=== PATIENT | female | born 1945 | race Caucasian/White ===

== ENCOUNTER 2019-07-14 22:38 | Observation (INO) ==
[2019-07-14] MEDS ORDERED: Azithromycin 500 MG in 0.9 % Sodium Chloride 250 ML IVPB ONE (22:47)
[2019-07-14] MEDS ORDERED: Albuterol 2.5 MG/3 ML NEBULIZER IH ONE (22:47)
[2019-07-14] MEDS ORDERED: Piperacillin/Tazobactam 3.375 GM in Water for inj. (sterile) 20 ML IVP ONE (22:47)
--- NOTE | 2019-07-14 22:52 | Emergency Department Note ---
Disposition Clinical Impression: Aspiration into airway Qualifiers: Encounter type: initial encounter Qualified Code(s): T17.908A - Unspecified foreign body in respiratory tract, part unspecified causing other injury, initial encounter Disposition: Admitted As Inpatient Condition: Good Referrals: Jai Marie MD [Primary Care Provider] - Forms: ED Satisfaction Letter Time of Disposition: 00:27 SOB HPI - General Chief Complaint: ED Shortness of Breath/Dyspnea Stated Complaint: possible asspiration Time Seen by Provider: 07/14/19 22:45 Source: EMS Mode of arrival: EMS Limitations: altered mental status (Chronic), physical limitation Nursing Notes Reviewed: Yes Vital Signs Reviewed: Yes - History of Present Illness Patient has Down syndrome and severe MRDD. The patient is noncommunicative. She is been brought from her [facility] for increased respiratory distress with gurgling respiration. There is concern for possible aspiration. Her vital signs report be relatively stable and she has been saturating in the high 80s. Supplemental oxygen was applied. He has not had reported fevers, vomiting or diarrhea. Is unknown for ill exposures. She reportedly has been receiving all of her routine medicines and treatments. - Related Data Home Medications Medication Instructions Recorded Confirmed Acetaminophen [Tylenol 650mg SUPP] 650 mg GTUBE Q4HR PRN 03/14/17 08/07/18 Artificial Tears SOLN [Akwa Tears] 1 drop BOTH EYES QID 03/14/17 08/07/18 Bisacodyl [Dulcolax] 10 mg RC DAILY PRN 03/14/17 08/07/18 Levothyroxine [Synthroid] 175 mcg GTUBE 0630 03/14/17 08/07/18 Multivit-Min/FA/Lycopen/Lutein 1 each GTUBE QAM 03/14/17 08/07/18 [Adults 50+ Multivitamin Tablet] Soy Protein [Ultramino] 480 gm GTUBE QAM 03/14/17 08/07/18 Allergies Allergy/AdvReac Type Severity Reaction Status Date / Time No Known Allergies Allergy Verified 07/14/19 22:58 Limitations: ROS unobtainable due to patients medical condition Past Medical History - Past Medical History Source: old records reviewed, nursing notes reviewed Medical history: Reports: asthma, CHF, pulmonary embolus, thyroid disease, other (obesity, chronic tremors and twitching, Down's, profound MRDD) Surgical history: Reports: other (g tube) Psychiatric history: Reports: no psych history SENIOR MAINFRAME PROGRAMMER ANALYST history: Reports: no SENIOR MAINFRAME PROGRAMMER ANALYST history - Social History Smoking Status: Never smoker Smokeless Tobacco Status: No Alcohol use: Reports: none Drug use: Reports: none Physical Exam - General Limitations: altered mental status, physical limitation, other (Down syndrome with severe MRDD) General appearance: other (Gurgly respirations but no apparent distress.) - Head Head exam: atraumatic, normocephalic, normal inspection - Eye Eye exam: Present: normal appearance. Absent: scleral icterus, conjunctival injection - ENT ENT exam: normal exam, mucous membranes moist, mucous membranes dry - Neck Neck exam: Present: normal inspection, full ROM, trachea midline - Chest Chest inspection: Present: normal inspection, symmetric chest wall rise. Absent: tenderness - Respiratory Respiratory exam: Present: other (Relatively loud gurgling respirations but has saturating well on supplemental oxygen without tachycardia.). Absent: respiratory distress, wheezes, stridor, accessory muscle use, prolonged expiratory phase - Cardiovascular Cardiovascular exam: Present: regular rate, normal rhythm, normal heart sounds. Absent: tachycardia - Abdominal Exam Abdominal exam: Present: soft, Non-Tender, normal bowel sounds. Absent: tenderness, distention, guarding, rebound, rigidity - Extremities Exam Extremities exam: Present: normal inspection, full ROM, normal capillary refill. Absent: tenderness, pedal edema, calf tenderness - Expanded Lower Extremity Exam Neurovascular/Tendon exam: Present: normal capillary refill Gait: not tested/not observed - Neurological Exam Neurological exam: Absent: oriented X3 - Psychiatric Psychiatric exam: Present: flat affect. Absent: agitated, anxious - Skin Skin exam: Present: warm, dry, intact, normal color. Absent: cyanosis, diaphoresis, pallor Course Course Narrative: Testing has been discussed with the patient presents family at bedside. I recommended continued IV fluids, respiratory suction and IV antibiotics. I discuss with their expectations should symptoms worsen. Percent bedside say that she patient's sister in [place] make the healthcare decisions. She knows that they would not want her on a ventilator and states that she is 73, has Down syndrome and "if she goes she goes". The patient is full code at this time. Individual bedside would like to talk to the patient's sister in [place] tomorrow to discuss CODE STATUS. I recommended DNR comfort care arrest status and they are agreeable to discussing that while inpatient. She remains full code at this time. They understand that she would be intubated, get chest compressions and ACLS medication with her current CODE STATUS. 0015: The patient's guardian at bedside is assigned she does wish to sign DNR comfort care paperwork. In discussion she does not believe she did wish her intubated under any circumstances and has elected to DNR CCarrest DNI status. This has been signed and a page has been placed to Dr. Bailey for her admission. 0020: Care has been discussed with Dr. Bailey. Verbal orders have been obtained for the patient's observation. Vital Signs Temperature 97.4 F L 07/14/19 22:39 Pulse Rate 67 07/14/19 22:39 Respiratory Rate 21 07/14/19 22:39 Blood Pressure 152/126 07/14/19 22:39 O2 Sat by Pulse Oximetry 100 07/14/19 22:39 Temperature 97.1 F L 07/14/19 22:51 Pulse Rate 73 07/15/19 00:03 Respiratory Rate 20 07/15/19 00:03 Blood Pressure 105/90 07/15/19 00:03 O2 Sat by Pulse Oximetry 99 07/15/19 00:03 Oxygen Delivery Oxygen Delivery Simple Mask Shortness of Breath/Dyspnea - Differential Diagnosis Likely: acute exacerbation of chronic obstructive airways disease, pneumonia (Aspiration) - Medical Records Medical records reviewed: Yes I reviewed the patient's medical records. - Lab Data Lab results reviewed: Yes I reviewed the patient's lab results. Result diagrams: 07/14/19 23:07 07/14/19 23:07 Lab Results 07/14/19 07/14/19 07/14/19 Range/Units 23:07 23:07 23:07 WBC 5.3 (4.3-11.1) K/mcL RBC 4.04 (3.82-4.97) M/mcL Hgb 15.4 (11.5-15.4) g/dL Hct 45.3 H (35.3-44.9) % MCV 112.1 H (83.0-100.0) fL MCH 38.1 H (28.0-33.3) pg MCHC 34.0 (31.6-35.5) g/dL RDW 15.3 H (11.5-14.5) % Plt Count 98 L (140-400) K/mcL MPV 12.4 (9.4-12.4) fL Immature Gran % 0.4 (0-4) % Seg Neutrophils % 72.1 % Lymphocytes % 15.6 % Monocytes % 10.7 % Eosinophils % 0.6 % Basophils % 0.6 % Neutrophils # 3.8 (1.6-8.9) K/mcL Lymphocytes # 0.8 (0.6-4.6) K/mcL Monocytes # 0.6 (0.0-1.3) K/mcL Eosinophils # 0.0 (0.0-0.6) K/mcL Basophils # 0.0 (0.0-0.2) K/mcL PT 12.4 H (9.4-12.1) Seconds INR 1.1 Sodium 134 L (136-145) mEq/L Potassium 4.3 (3.5-5.1) mEq/L Chloride 100 (98-107) mEq/L Carbon Dioxide 32 H (23-29) mEq/L BUN 16 (8-23) mg/dL Creatinine 0.76 (0.60-1.20) mg/dL Est GFR ( Amer) > 60 (> 60) Est GFR (Non-Af Amer) > 60 (> 60) BUN/Creatinine Ratio 21 (6-26) Glucose 100 (70-105) mg/dL Calculated Osmolality 279 L (280-300) Lactic Acid (0.5-2.2) mmol/L Calcium 7.9 L (8.6-10.3) mg/dL Total Bilirubin 0.3 (0.3-1.0) mg/dL Direct Bilirubin 0.0 (0.0-0.2) mg/dL Indirect Bilirubin 0.3 (0.0-1.2) mg/dL AST 26 (13-39) Units/L ALT 34 (7-52) Units/L Alkaline Phosphatase 129 H (34-104) Units/L Troponin I < 0.03 (< 0.04) ng/mL B-Natriuretic Peptide (Less than 100) pg/mL Serum Total Protein 6.6 (6.4-8.9) g/dL Albumin 2.6 L (3.5-5.7) g/dL Globulin 4.0 H (2.4-3.5) g/dL Albumin/Globulin Ratio 0.7 L (1.1-2.2) Urine Color (Yellow) Urine Clarity (Clear) Urine pH (5.0-8.0) pH Units Ur Specific Ney (1.010-1.025) Urine Protein (Neg-Trace) mg/dL Urine Glucose (UA) (Normal) mg/dL Urine Ketones (Negative) mg/dL Urine Blood (Negative) Urine Nitrite (Negative) Urine Bilirubin (Negative) Urine Urobilinogen (Normal) mg/dL Ur Leukocyte Esterase (Negative) Urine Microscopic RBC (0-3) per hpf Urine Microscopic WBC (0-3) per hpf Ur Squamous Epith Cells (None-Few) per lpf Ur Transition Epith Cell (None-Few) per hpf Urine Bacteria (None-Few) per hpf Ur Culture Indicated? (NO) 07/14/19 07/14/19 07/14/19 Range/Units 23:07 23:07 23:31 WBC (4.3-11.1) K/mcL RBC (3.82-4.97) M/mcL Hgb (11.5-15.4) g/dL Hct (35.3-44.9) % MCV (83.0-100.0) fL MCH (28.0-33.3) pg MCHC (31.6-35.5) g/dL RDW (11.5-14.5) % Plt Count (140-400) K/mcL MPV (9.4-12.4) fL Immature Gran % (0-4) % Seg Neutrophils % % Lymphocytes % % Monocytes % % Eosinophils % % Basophils % % Neutrophils # (1.6-8.9) K/mcL Lymphocytes # (0.6-4.6) K/mcL Monocytes # (0.0-1.3) K/mcL Eosinophils # (0.0-0.6) K/mcL Basophils # (0.0-0.2) K/mcL PT (9.4-12.1) Seconds INR Sodium (136-145) mEq/L Potassium (3.5-5.1) mEq/L Chloride (98-107) mEq/L Carbon Dioxide (23-29) mEq/L BUN (8-23) mg/dL Creatinine (0.60-1.20) mg/dL Est GFR ( Amer) (> 60) Est GFR (Non-Af Amer) (> 60) BUN/Creatinine Ratio (6-26) Glucose (70-105) mg/dL Calculated Osmolality (280-300) Lactic Acid 0.8 (0.5-2.2) mmol/L Calcium (8.6-10.3) mg/dL Total Bilirubin (0.3-1.0) mg/dL Direct Bilirubin (0.0-0.2) mg/dL Indirect Bilirubin (0.0-1.2) mg/dL AST (13-39) Units/L ALT (7-52) Units/L Alkaline Phosphatase (34-104) Units/L Troponin I (< 0.04) ng/mL B-Natriuretic Peptide 65 (Less than 100) pg/mL Serum Total Protein (6.4-8.9) g/dL Albumin (3.5-5.7) g/dL Globulin (2.4-3.5) g/dL Albumin/Globulin Ratio (1.1-2.2) Urine Color Yellow (Yellow) Urine Clarity Clear (Clear) Urine pH 7.0 (5.0-8.0) pH Units Ur Specific Ney 1.015 (1.010-1.025) Urine Protein Negative (Neg-Trace) mg/dL Urine Glucose (UA) Normal (Normal) mg/dL Urine Ketones Negative (Negative) mg/dL Urine Blood Small H (Negative) Urine Nitrite Negative (Negative) Urine Bilirubin Negative (Negative) Urine Urobilinogen Normal (Normal) mg/dL Ur Leukocyte Esterase Trace H (Negative) Urine Microscopic RBC 5-15 H (0-3) per hpf Urine Microscopic WBC 5-15 H (0-3) per hpf Ur Squamous Epith Cells Many H (None-Few) per lpf Ur Transition Epith Cell Many H (None-Few) per hpf Urine Bacteria Few (None-Few) per hpf Ur Culture Indicated? YES A (NO) - Radiology Data Radiology results reviewed: Yes I reviewed the patient's radiology results. Single view chest x-ray is performed. This does not demonstrate evidence for dominant infiltrate, effusion, pneumothorax, foreign body or heart failure. Patient has a little fullness in the right hilar region with some basilar atelectasis. The cardiac silhouette is normal. I do not see abnormality to the osseous structures of the chest. This is on my interpretation. Impressions Chest X-Ray 07/14/19 23:08 IMPRESSION: Peribronchial cuffing could reflect mild edema versus airway inflammation. No consolidative airspace disease. D/ / Marcelino Escalante / Marcelino Escalante Interpreting Provider: Marcelino Escalante - EKG Data EKG attestation: Yes I reviewed and interpreted this EKG. EKG shows normal: Reports: sinus rhythm, axis, intervals, QRS complexes, ST-T waves Rate: Reports: bradycardia (57) Interpretation: Reports: no acute changes, other (Patient has baseline artifact without other acute abnormalities.) Critical Care Time Critical Care Time: Yes Total Critical Care Time: 45 Attestation: As this patient did present with signs and symptoms of potential life- threatening illness requiring my urgent intervention, total critical care time in this patient's care has been 45 minutes, not withstanding separately reportable procedures.
[2019-07-14 23:21] LABS: Basophils % 0.6 %; Eosinophils % 0.6 %; Hematocrit 45.3 % (35.3-44.9); Hemoglobin 15.4 g/dL (11.5-15.4); Immature Granulocytes % 0.4 % (0-4); Lymphocytes # 0.8 K/mcL (0.6-4.6); Lymphocytes % 15.6 %; Mean Corpuscular Hemoglobin 38.1 pg (28.0-33.3); Mean Corpuscular Volume 112.1 fL (83.0-100.0); Mean Platelet Volume 12.4 fL (9.4-12.4); Monocytes # 0.6 K/mcL (0.0-1.3); Monocytes % 10.7 %; Neutrophils # 3.8 K/mcL (1.6-8.9); Red Blood Count 4.04 M/mcL (3.82-4.97); Red Cell Distribution Width 15.3 % (11.5-14.5); Segmented Neutrophils % 72.1 %; White Blood Count 5.3 K/mcL (4.3-11.1)
[2019-07-14 23:23] LABS: Platelet Count 98 K/mcL (140-400)
[2019-07-14 23:29] LABS: INR 1.1; Prothrombin Time 12.4 Seconds (9.4-12.1)
[2019-07-14 23:41] LABS: Alanine Aminotransferase 34 Units/L (7-52); Albumin 2.6 g/dL (3.5-5.7); Albumin/Globulin Ratio 0.7 (1.1-2.2); Alkaline Phosphatase 129 Units/L (34-104); Aspartate Amino Transferase 26 Units/L (13-39); BUN/Creatinine Ratio 21 (6-26); Bilirubin,Indirect 0.3 mg/dL (0.0-1.2); Bilirubin,Total 0.3 mg/dL (0.3-1.0); Blood Urea Nitrogen 16 mg/dL (8-23); Calcium 7.9 mg/dL (8.6-10.3); Carbon Dioxide 32 mEq/L (23-29); Chloride 100 mEq/L (98-107); Glucose 100 mg/dL (70-105); Osmolality,Calculated 279 (280-300); Potassium 4.3 mEq/L (3.5-5.1); Sodium 134 mEq/L (136-145); Total Protein 6.6 g/dL (6.4-8.9); eGFR For African Americans > 60 (> 60); eGFR For Non-African Americans > 60 (> 60)
[2019-07-14 23:43] LABS: Troponin I < 0.03 ng/mL (< 0.04)
[2019-07-14 23:48] LABS: Bilirubin,Urine Negative (Negative); Blood,Urine Small (Negative); Clarity,Urine Clear (Clear); Color,Urine Yellow (Yellow); Glucose,Urine (UA) Normal (Normal); Ketones,Urine Negative (Negative); Leukocyte Esterase,Urine Trace (Negative); Nitrite,Urine Negative (Negative); Protein,Urine Negative (Neg-Trace); Specific Gravity,Urine 1.015 (1.010-1.025); Urobilinogen,Urine Normal (Normal)
[2019-07-14 23:51] LABS: Bacteria,Urine Few per hpf (None-Few); Squamous Epithelial Cell,Urine Many per lpf (None-Few); Transitional Epi Cells,Urine Many per hpf (None-Few)
[2019-07-15] MEDS ORDERED: Scopolamine Patch 1.5 MG PATCH.TD72 TD SCH ×2 (01:00→02:10)
[2019-07-15] MEDS ORDERED: Naloxone 0.4 MG/ML INJ IVP PRN (01:04)
[2019-07-15] MEDS ORDERED: Ondansetron 4 MG/2 ML VIAL IVP PRN (01:04)
[2019-07-15] MEDS: 0.9 % Sodium Chloride 1,000 ML IVC SCH ×2 (01:38→12:28)
[2019-07-15] MEDS: Ipratropium/Albuterol Neb 3 ML IH SCH ×4 (04:00→21:20)
[2019-07-15] MEDS: Primidone 50 MG TABLET PO SCH ×3 (07:34→17:36)
[2019-07-15] MEDS: Piperacillin/Tazobactam 3.375 GM in 0.9 % Sodium Chloride Mini Bag 100 ML IVPB SCH ×2 (08:46→17:43)
[2019-07-15] MEDS: Artificial Tears SOLN 15 ML BOTTLE BOTH EYES SCH ×4 (08:47→22:30)
--- NOTE | 2019-07-15 11:23 | Internal Med History&Physical ---
Date of Encounter: 07/15/19 Time of Encounter: 11:05 Assessment and Plan (1) Aspiration into airway Current visit: Yes Status: Acute Presumed but unwitnessed. She has been started empirically on antibiotics. Probiotics will be given. Follow-up labs will be ordered. Qualifiers: Encounter type: initial encounter Qualified Code(s): T17.908A - Unspecified foreign body in respiratory tract, part unspecified causing other injury, initial encounter (2) Macrocytosis without anemia Current visit: Yes Status: Acute TSH was normal at 0.648 on 06/22/2019. B12 and folate levels will be checked. LFTs unremarkable. Internal Medicine - H&P: HPI Chief complaint: Dyspnea Admitted From: Emergency Dept Plans for Post Hospital Care: Transfer Correction Care History of present illness: Ms. Briggs is a 73 year old female who was sent from a local SNF to ER after there was concern for possible aspiration. The ER report states oxygen saturations were in the high 80s. She was evaluated in the ER and found to have labored respirations. Her POA changed her advance directive status to DNR CCA/DNI. [facility]. She is nonverbal and cannot give any history. Available records showed diagnosis of asthma. Past Med Surg Social Fam HX - Past Medical History Medical history: asthma, CHF, pulmonary embolus, thyroid disease, other Additional medical history: aphasia,contracted Psychiatric history: no psych history - Past Surgical History Surgical History: other - Social History Smoking Status: Never smoker Smokeless Tobacco Status: No Alcohol use: none Drug use: none - Family History Mother History Unknown: Yes Internal Medicine - H&P: Meds Acetaminophen [Tylenol 650mg SUPP] 650 mg GTUBE Q4HR PRN 03/14/17 [History] Artificial Tears SOLN [Akwa Tears] 1 drop BOTH EYES QID 03/14/17 [History] Bisacodyl [Dulcolax] 10 mg RC DAILY PRN 03/14/17 [History] Levothyroxine [Synthroid] 175 mcg GTUBE 0630 03/14/17 [History] Multivit-Min/FA/Lycopen/Lutein [Adults 50+ Multivitamin Tablet] 1 each GTUBE QAM 03/14/17 [History] Soy Protein [Ultramino] 480 gm GTUBE QAM 03/14/17 [History] Magnesium Hydroxide [Milk of Magnesia] 400 mg PO 07/15/19 [History] Primidone 07/15/19 [History] Scopolamine Patch [Transderm-Scop] 1.5 mg TD Q72H 07/15/19 [History] Allergy/AdvReac Type Severity Reaction Status Date / Time No Known Allergies Allergy Verified 07/14/19 22:58 All Systems PM: A 10-system review of systems was performed and is negative for pertinent findings except as documented above in the HPI. Review of systems: Unobtainable from the patient. Available records show asthma, CHF, pulmonary embolus NOS, thyroid disease NOS, Down syndrome, and "chronic tremors and twitching". Review of available labs show chronic macrocytosis and thrombocytopenia. - Constitutional Vitals: Temp Pulse Resp BP Pulse Ox 99.4 F 65 20 102/63 95 07/15/19 10:45 07/15/19 10:45 07/15/19 10:45 07/15/19 10:45 07/15/19 10:45 Exam: Gen.: She is a well-developed obese female with Down syndrome lying in bed wearing oxygen by mask HEENT: Head is atraumatic and normocephalic. She has significant scaliness on her scalp. Eyes: She has a disconjugate gaze. There is mild conjunctival erythema bilaterally. Mouth: Mucosa is dry. She is mouth breathing. Neck: She has a large neck. No masses are palpated. Heart: Regular with tones difficult to hear due to respiratory sounds. Lungs: She has diffuse gurgling secretions in her airways. No wheezing is heard. Abdomen: G-tube is in place in the epigastric area. The abdomen is nontender to palpation. No masses or guarding are noted. Extremities: There is no cyanosis edema or clubbing noted. Dorsalis pedis and posterior tibial pulses are trace palpable. Neurologic: Mental status: She is nonverbal and does not follow commands or respond to voice. Cranial nerves: She does not make spontaneous facial movements or follow commands. She has a disconjugate gaze. Motor: She does not move her arms spontaneously. There is equal tone on passive range of motion. She withdraws her feet to touch. She has occasional jerking motion of her arms. No further neurologic testing is attempted. Skin: Warm and dry. Internal Med - H&P Results - Labs CBC & Chem 7: 07/14/19 23:07 07/14/19 23:07 Labs: Short CBC 07/14/19 Range/Units 23:07 WBC 5.3 (4.3-11.1) K/mcL Hgb 15.4 (11.5-15.4) g/dL Hct 45.3 H (35.3-44.9) % Plt Count 98 L (140-400) K/mcL Neutrophils # 3.8 (1.6-8.9) K/mcL BMP 07/14/19 23:07 Sodium 134 L Potassium 4.3 Chloride 100 Carbon Dioxide 32 H BUN 16 Creatinine 0.76 Glucose 100 Calcium 7.9 L Cardiac Enzymes 07/14/19 Range/Units 23:07 Troponin I < 0.03 (< 0.04) ng/mL Liver Function 07/14/19 Range/Units 23:07 Total Bilirubin 0.3 (0.3-1.0) mg/dL Direct Bilirubin 0.0 (0.0-0.2) mg/dL AST 26 (13-39) Units/L ALT 34 (7-52) Units/L Alkaline Phosphatase 129 H (34-104) Units/L Albumin 2.6 L (3.5-5.7) g/dL Urine 07/14/19 Range/Units 23:31 Urine Color Yellow (Yellow) Urine Clarity Clear (Clear) Urine pH 7.0 (5.0-8.0) pH Units Ur Specific Wendel 1.015 (1.010-1.025) Urine Protein Negative (Neg-Trace) mg/dL Urine Glucose (UA) Normal (Normal) mg/dL - Impressions ITS Impressions Chest X-Ray 07/14/19 23:08 IMPRESSION: Peribronchial cuffing could reflect mild edema versus airway inflammation. No consolidative airspace disease. D/ / Marcelino Escalante / Marcelino Escalante Interpreting Provider: Marcelino Escalante
[2019-07-15 11:34] LABS: Basophils % 0.4 %; Eosinophils % 0.1 %; Hematocrit 43.6 % (35.3-44.9); Hemoglobin 14.5 g/dL (11.5-15.4); Immature Granulocytes % 0.5 % (0-4); Lymphocytes # 0.5 K/mcL (0.6-4.6); Lymphocytes % 6.4 %; Mean Corpuscular HGB Conc 33.3 g/dL (31.6-35.5); Mean Corpuscular Hemoglobin 38.3 pg (28.0-33.3); Mean Platelet Volume 11.6 fL (9.4-12.4); Monocytes # 0.5 K/mcL (0.0-1.3); Monocytes % 6.2 %; Neutrophils # 7.3 K/mcL (1.6-8.9); Red Blood Count 3.79 M/mcL (3.82-4.97); Red Cell Distribution Width 15.5 % (11.5-14.5); Segmented Neutrophils % 86.4 %; White Blood Count 8.4 K/mcL (4.3-11.1)
[2019-07-15 11:43] LABS: Platelet Count 95 K/mcL (140-400)
[2019-07-15 11:45] LABS: Macrocytosis Present (Not Present); Platelet Estimate Decreased (Normal); Polychromasia 1+ (Not Present)
[2019-07-15 16:30] LABS: Folate 22.3 ng/mL (3.0-16.0)
[2019-07-15] MEDS ORDERED: Azithromycin 500 MG in 0.9 % Sodium Chloride 250 ML IVPB SCH (17:00)
[2019-07-15] MEDS: Azithromycin 500 MG in 0.9 % Sodium Chloride 250 ML IVPB SCH (22:31)
[2019-07-16] MEDS: Piperacillin/Tazobactam 3.375 GM in 0.9 % Sodium Chloride Mini Bag 100 ML IVPB SCH ×3 (00:28→17:10)
[2019-07-16] MEDS: Primidone 50 MG TABLET PO SCH ×4 (00:29→17:11)
[2019-07-16] MEDS: Ipratropium/Albuterol Neb 3 ML IH SCH ×2 (03:26→08:55)
[2019-07-16] MEDS: Artificial Tears SOLN 15 ML BOTTLE BOTH EYES SCH ×4 (08:05→21:23)
--- NOTE | 2019-07-16 11:39 | Electrocardiograph Report ---
[place] [id number] Test Date: 2019-07-14 Pat Name: Cliff Briggs Department: EDP-16 Room: [facility] Gender: F Photographer Assistant: : 1945 Requested By: Pramod Short Order Number: [id number] Reading MD: Gil Davila Measurements Intervals [place] Rate: 57 P: MN: QRS: -9 QRSD: 114 T: 73 QT: 504 QTc: 487 Interpretive Statements Sinus bradycardia Borderline intraventricular conduction delay Low voltage, precordial leads Nonspecific T abnrm, anterolateral leads Borderline prolonged QT interval Electronically Signed On 07-16-2019 11:37:20 EDT by Gil Davila
--- NOTE | 2019-07-16 13:42 | Internal Med Progress Note ---
Date of Encounter: 07/16/19 Time of Encounter: 13:35 - Assessment and plan (1) Aspiration into airway Current Visit: Yes Status: Acute Assessment and plan: July 16. Presumed but unwitnessed. WBC has risen to 8.4 with increased left shift on differential. Pro-calcitonin level 0.07 yesterday. Continue empiric antibiotics and probiotics. Recheck labs and chest x-ray in a.m. Qualifiers: Encounter type: initial encounter Qualified Code(s): T17.908A - Unspecified foreign body in respiratory tract, part unspecified causing other injury, initial encounter (2) Macrocytosis without anemia Current Visit: Yes Status: Acute Assessment and plan: July 16. LFTs, B12, and folate WNL. TSH WNL at 0.648 on 06/22/2019. - Subjective Interval history: July 16. No new problems have arisen. - Constitutional Vitals: Temp Pulse Resp BP Pulse Ox 99.3 F 56 16 80/56 95 07/16/19 06:23 07/16/19 06:23 07/16/19 08:56 07/16/19 06:23 07/16/19 08:56 Exam: She is lying in bed and appears in no significant distress. She has upper airway secretions but does not appear significantly tachypneic. No wheezing is heard. Heart tones are inaudible due to secretions. I reviewed her medications and lab results. Internal Medicine: Result - Labs CBC & Chem 7: 07/15/19 11:26 07/14/19 23:07 - ABG Interpretation ABG results: PT/INR, D-dimer PT 12.4 Seconds (9.4-12.1) H 07/14/19 23:07 Consult Discharge Plan - Plan Referrals: Jai Marie MD [Primary Care Provider] - 1 week
[2019-07-16] MEDS: Lactobacillus 1 EACH CAP.SPRINK PO SCH (21:17)
[2019-07-16] MEDS: Albuterol 2.5 MG/3 ML NEBULIZER IH PRN (21:52)
[2019-07-16] MEDS: Azithromycin 500 MG in 0.9 % Sodium Chloride 250 ML IVPB SCH (23:09)
[2019-07-17] MEDS: Piperacillin/Tazobactam 3.375 GM in 0.9 % Sodium Chloride Mini Bag 100 ML IVPB SCH ×2 (00:26→08:28)
[2019-07-17] MEDS: Primidone 50 MG TABLET PO SCH ×2 (00:26→06:07)
[2019-07-17] MEDS: Albuterol 2.5 MG/3 ML NEBULIZER IH PRN (01:34)
[2019-07-17 06:32] VITALS: BP 109/55
[2019-07-17 07:54] LABS: Basophils % 0.9 %; Eosinophils # 0.1 K/mcL (0.0-0.6); Eosinophils % 1.4 %; Hematocrit 42.5 % (35.3-44.9); Hemoglobin 14.3 g/dL (11.5-15.4); Immature Granulocytes % 0.7 % (0-4); Lymphocytes # 0.9 K/mcL (0.6-4.6); Lymphocytes % 19.8 %; Mean Corpuscular HGB Conc 33.6 g/dL (31.6-35.5); Mean Corpuscular Hemoglobin 38.6 pg (28.0-33.3); Mean Corpuscular Volume 114.9 fL (83.0-100.0); Mean Platelet Volume 11.9 fL (9.4-12.4); Monocytes # 0.4 K/mcL (0.0-1.3); Monocytes % 9.8 %; Neutrophils # 2.9 K/mcL (1.6-8.9); Platelet Count 103 K/mcL (140-400); Red Cell Distribution Width 14.6 % (11.5-14.5); Segmented Neutrophils % 67.4 %; White Blood Count 4.3 K/mcL (4.3-11.1)
[2019-07-17 08:18] LABS: BUN/Creatinine Ratio 17 (6-26); Blood Urea Nitrogen 13 mg/dL (8-23); Carbon Dioxide 32 mEq/L (23-29); Chloride 102 mEq/L (98-107); Glucose 97 mg/dL (70-105); Osmolality,Calculated 282 (280-300); Potassium 4.3 mEq/L (3.5-5.1); Sodium 136 mEq/L (136-145); eGFR For African Americans > 60 (> 60); eGFR For Non-African Americans > 60 (> 60)
[2019-07-17] MEDS: Lactobacillus 1 EACH CAP.SPRINK PO SCH (08:28)
[2019-07-17] MEDS: Artificial Tears SOLN 15 ML BOTTLE BOTH EYES SCH (08:28)
[2019-07-17 08:40] LABS: Macrocytosis Present (Not Present); Platelet Estimate Decreased (Normal)
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
[2019-07-18] MEDS ORDERED: Scopolamine Patch 1.5 MG PATCH.TD72 TD SCH (01:00)
== END 2019-07-17 13:23 ==
LOC: EMEROOPIK 22:38 → INPPIK 22:38
PROVIDERS: ADMIT Internal Medicine; ATTEND Internal Medicine